=== PATIENT | female | born 1940 | race Native Hawaiian/Other Pacific Islander ===

== ENCOUNTER 2020-09-09 11:01 | Outpatient (CLI) | payer OTHER | END 2020-09-09 22:21 | disposition home or self-care (01) | LOC: LABW 11:01 | PROVIDERS: ATTEND Physician Assistant Medical | DX: I48.20 Chronic atrial fibrillation, unspecified (principal); Z79.01 Long term (current) use of anticoagulants | CPT/HCPCS: 36415; 85610 ==